=== PATIENT | male | born 1980 | race Caucasian/White ===

== ENCOUNTER 2019-09-27 13:23 | Emergency (ER) | payer MEDICAID ==
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
--- NOTE | 2019-09-27 14:54 | CT ---
Head CT Technique: Multiple axial sections through the brain were obtained. Intravenous contrast was not utilized. Comparison: Prior head CT study of 01/23/19. Findings: Ventricles along with basal cisterns and sulci over the convexities are within normal limits for the patient's age. No abnormal parenchymal densities are seen. No evidence of intracranial hemorrhage. No midline shift or mass-effect is seen. Bone window settings were reviewed. No acute calvarial finding is appreciated. Visualized mastoid sinuses and visualized paranasal sinuses are clear. Impression: 1. Nothing acute is appreciated on noncontrast head CT exam. Diagnostic code #1 This report was dictated in MDT
--- NOTE | 2019-09-27 14:58 | CT ---
CT facial bones Technique: Multiple axial sections through the facial bones were obtained. Reconstructed coronal and sagittal images were obtained. Findings: Small retention cyst is noted with medial left maxillary sinus measuring 8 mm. Slight mucosal thickening is seen within the inferior left maxillary sinus. Other mucosal thickening is seen within the upper medial maxillary sinus on the left side. Finding causes clouding of the ostia of both maxillary sinuses. These findings are felt to be chronic. Nothing acute is appreciated within the paranasal sinuses. Mastoid sinuses are clear. Right and left globes are symmetric in size. No retrobulbar abnormality is appreciated. Mild nasal septal deviation is seen which appears chronic. No acute facial bone fracture is appreciated. Numerous dental caries appear to be present. Impression: 1. Mild sinus findings which are felt to be chronic. 2. Numerous dental caries appear to be present. 3. Nothing acute is seen on CT study of the facial. Diagnostic code #3 This report was dictated in MDT
== END 2019-09-27 15:37 | disposition home or self-care (01) ==
LOC: JD.ED 13:23
DX: S06.0X0A Concussion without loss of consciousness, initial encounter (principal); S00.83XA Contusion of other part of head, initial encounter; H53.8 Other visual disturbances; G62.9 Polyneuropathy, unspecified; Z79.899 Other long term (current) drug therapy; F17.210 Nicotine dependence, cigarettes, uncomplicated; Y04.0XXA Assault by unarmed brawl or fight, initial encounter
CPT/HCPCS: 36415; 70450; 70450-26; 70486; 70486-26; 80053; 80307; 85025; 99283; 99284-25; G0433